=== PATIENT | male | born 1975 | race Caucasian/White ===

== ENCOUNTER 2017-10-01 13:40 | Emergency (ER) | payer OTHER ==
[~2017-10-01] VITALS: Ht 177.8 cm; Wt 95.3 kg
[~2017-10-01 13:40] MED LIST: VIBRAMYCIN100 MG PO
[2017-10-01] MEDS ORDERED: WARFARIN SOD5 MG PO (13:48)
[2017-10-01] MEDS ORDERED: QUINAPRIL40 MG PO (13:49)
[2017-10-01] MEDS ORDERED: AMLODIPINE BESYL5 MG PO (13:49)
[2017-10-01] MEDS ORDERED: METOPROLOL TAR100 M1 PO (13:49)
[2017-10-01] MEDS ORDERED: MELOXICAM7.5 MG PO (13:49)
[2017-10-01 13:56] VITALS: BP 95/70
[2017-10-01] MEDS ORDERED: NAPROSYN500 MG PO (14:03)
[2017-10-01] MEDS ORDERED: KEFLEX500 M1 PO (14:03)
== END 2017-10-01 14:32 | disposition home or self-care (01) ==
LOC: ED 13:40
DX: S61.210A Laceration without foreign body of right index finger without damage to nail, initial encounter (principal); F17.200 Nicotine dependence, unspecified, uncomplicated; W31.2XXA Contact with powered woodworking and forming machines, initial encounter; Z79.899 Other long term (current) drug therapy; Y93.89 Activity, other specified; Y92.89 Other specified places as the place of occurrence of the external cause; Y99.8 Other external cause status

== ENCOUNTER → 2020-12-28 | Outpatient (CLI) | payer OTHER ==
[~2020-12-28] MED LIST changes: +AMLODIPINE BESYL5 MG PO; +KEFLEX500 M1 PO; +MELOXICAM7.5 MG PO; +METOPROLOL TAR100 M1 PO; +NAPROSYN500 MG PO; +QUINAPRIL40 MG PO; +WARFARIN SOD5 MG PO
== END | disposition home or self-care (01) ==
LOC: CARD 09:11
PROVIDERS: ATTEND Internal Medicine Cardiovascular Disease
DX: I35.1 Nonrheumatic aortic (valve) insufficiency (principal); Z95.2 Presence of prosthetic heart valve

== ENCOUNTER → 2024-12-13 | Outpatient (CLI) | payer OTHER | END | disposition home or self-care (01) | LOC: CT 13:46 | PROVIDERS: ATTEND Nurse Practitioner Family | DX: Z12.2 Encounter for screening for malignant neoplasm of respiratory organs (principal); I51.7 Cardiomegaly; I25.10 Atherosclerotic heart disease of native coronary artery without angina pectoris; I71.40 Abdominal aortic aneurysm, without rupture, unspecified; M47.815 Spondylosis without myelopathy or radiculopathy, thoracolumbar region; Z87.891 Personal history of nicotine dependence ==

== ENCOUNTER → 2025-02-07 | Outpatient (CLI) | payer OTHER ==
[~2025-02-07] MED LIST changes: +IOHEXOL 300 MG/ML 100 ML VIAL IV ONE
== END | disposition home or self-care (01) ==
LOC: CT 09:49
PROVIDERS: ATTEND Nurse Practitioner Family
DX: K42.9 Umbilical hernia without obstruction or gangrene (principal); E27.8 Other specified disorders of adrenal gland; D17.1 Benign lipomatous neoplasm of skin and subcutaneous tissue of trunk; K43.9 Ventral hernia without obstruction or gangrene; I51.7 Cardiomegaly; K76.0 Fatty (change of) liver, not elsewhere classified